=== PATIENT | female | born 1990 | race African-American/Black ===

== ENCOUNTER 2021-12-23 01:31 | Emergency (ER) | payer SELFPAY ==
[~2021-12-23] VITALS: Ht 167.6 cm; Wt 145.5 kg
[2021-12-23 01:41] VITALS: TEMP 97.5
[2021-12-23 02:19] LABS: BASO % 0.5 % (0.0-2.0); EOS # 0.1 K/mm3 (0.0-0.7); GRAN # 3.4 K/mm3 (1.4-6.5); GRAN % 54.5 % (42.2-75.2); HEMOGLOBIN 11.9 g/dl (12.5-16.0); LYMPH # 2.3 K/mm3 (1.2-3.4); LYMPH % 36.3 % (20.0-51.0); MEAN CELL VOLUME 82 fl (80.0-100.0); MEAN CORPUSCULAR HEMOGLOBIN 27 pg (27-31); MEAN CORPUSCULAR HGB CONC 33 g/dl (33.0-37.0); MEAN PLATELET VOLUME 10.5 fl (7.4-10.4); MONO # 0.5 K/mm3 (0.1-0.6); MONO % 7.4 % (1.7-9.3); PLATELET COUNT 273 K/mm3 (130-400); RED BLOOD COUNT 4.34 M/mm3 (4.10-5.30); REDCELL DISTRIBUTION WIDTH-CV 12.3 % (11.5-14.5)
[2021-12-23 02:21] LABS: HEMATOCRIT 35.7 % (37.0-47.0)
[2021-12-23 02:28] LABS: INR 3.1 (0.8-3.0); PROTHROMBIN TIME 35.6 SECONDS (9.7-12.8)
[2021-12-23 02:36] LABS: ALBUMIN 3.9 gm/dL (3.5-5.0); BILIRUBIN,TOTAL 0.3 mg/dL (0.2-1.2); CALCIUM 9.3 mg/dL (8.4-10.2); POTASSIUM 3.5 mmol/L (3.5-4.5); TOTAL PROTEIN 7.1 gm/dL (6.2-8.1)
[2021-12-23 02:37] LABS: COLLECTION METHOD CLEAN CATCH
[2021-12-23 02:40] LABS: URINE COLOR OTHER (YELLOW)
[2021-12-23 02:41] LABS: URINE APPEARANCE Hazy (CLEAR/HAZY); URINE BLOOD 3+ (NEGATIVE); URINE GLUCOSE Negative (NEGATIVE); URINE KETONE Negative (NEGATIVE); URINE NITRATE Negative (NEGATIVE); URINE PROTEIN(semi-quant) 1+ (NEGATIVE); URINE UROBILINOGEN 0.2 E.U/dL (0.2-1.0)
[2021-12-23 02:44] LABS: SQUAMOUS EPITHELIAL None Seen /hpf (0-10); URINE BACTERIA None Seen /hpf (NONE SEEN); URINE RBC >50 /hpf (0-2)
[2021-12-23 02:44] LABS: CREATININE, serum 0.85 mg/dL (0.57-1.11)
[2021-12-23 03:16] VITALS: BP 134/91; PULSE 78
== END 2021-12-23 03:21 | disposition home or self-care (01) ==
LOC: COL.ER 01:31
PROVIDERS: Nurse Practitioner
DX: N93.9 Abnormal uterine and vaginal bleeding, unspecified (principal); Z86.711 Personal history of pulmonary embolism; Z79.01 Long term (current) use of anticoagulants